=== PATIENT | male | born 1960 | race African-American/Black ===

== ENCOUNTER 2017-05-19 11:09 | Emergency (ER) | payer MEDICAID, SELFPAY ==
[2017-05-19 11:10] VITALS: BP 148/100; PULSE 98; RESP 16; TEMP 36.6; O2SAT 96; BMI 26.3
[2017-05-19] MEDS: HYDROcodone Bitartrate/Apap 5/325 Tablet PO (12:06)
[2017-05-19] MEDS: Naproxen 500 MG Tablet PO (12:07)
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
[2017-05-19 12:31] VITALS: BP 124/78; PULSE 87; RESP 16
== END 2017-05-19 12:32 | disposition home or self-care (01) ==
PROVIDERS: Emergency Provider Emergency Medicine
DX: T23.232A Burn of second degree of multiple left fingers (nail), not including thumb, initial encounter (principal); X19.XXXA Contact with other heat and hot substances, initial encounter; Y93.9 Activity, unspecified; Y92.009 Unspecified place in unspecified non-institutional (private) residence as the place of occurrence of the external cause; Y99.9 Unspecified external cause status; I10 Essential (primary) hypertension; E78.00 Pure hypercholesterolemia, unspecified; F17.200 Nicotine dependence, unspecified, uncomplicated
CPT/HCPCS: 99283

== ENCOUNTER 2017-05-26 09:04 | Emergency (ER) | payer MEDICAID, SELFPAY ==
[2017-05-26 09:04] VITALS: BP 134/87; PULSE 77; RESP 18; TEMP 36.6; O2SAT 98; BMI 26.6
--- NOTE | 2017-05-26 09:08 | ED.RN ---
PT STATES OUT OF VICODIN
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
--- NOTE | 2017-05-26 09:32 | ED.DEP ---
ED Disposition - Plan for ED Patient: Chief Complaint: Med Refill Instructions: ED Burn Thermal D 1st 2nd Dressing, Med Refill Prescriptions: Hydrocodone Bitart/Apap 5-325 [Granger 5/325] 1 - 2 tab PO Q4H PRN PRN 5 Days #20 tab PRN Reason: Pain [facility]errals: [facility]Tracey Ayala [Primary Care Provider] - Additional Instructions: See the wound center in 3 days
[2017-05-26] MEDS: HYDROcodone Bitartrate/Apap 5/325 Tablet PO (09:44)
== END 2017-05-26 10:14 | disposition home or self-care (01) ==
PROVIDERS: Emergency Provider Emergency Medicine
DX: T23.202D Burn of second degree of left hand, unspecified site, subsequent encounter (principal); X08.8XXD Exposure to other specified smoke, fire and flames, subsequent encounter; I10 Essential (primary) hypertension; E78.00 Pure hypercholesterolemia, unspecified; Z72.0 Tobacco use
CPT/HCPCS: 99283

== ENCOUNTER 2017-05-29 13:59 | Outpatient (RCR) | payer MEDICAID, SELFPAY ==
[2017-05-29 14:37] VITALS: BP 129/86; PULSE 70; RESP 18; TEMP 36.2; BMI 26.6
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
== END 2017-05-30 23:59 ==
LOC: WC 13:59
PROVIDERS: Visit Provider Family Medicine
DX: T23.232A Burn of second degree of multiple left fingers (nail), not including thumb, initial encounter (principal); X10.2XXA Contact with fats and cooking oils, initial encounter; Y93.G3 Activity, cooking and baking; Y92.9 Unspecified place or not applicable; E78.5 Hyperlipidemia, unspecified; I10 Essential (primary) hypertension; Z79.899 Other long term (current) drug therapy; F17.210 Nicotine dependence, cigarettes, uncomplicated
CPT/HCPCS: 16020; 87070; 87075; 87205; 99212; G0463

== ENCOUNTER 2017-06-10 10:00 | Outpatient (RCR) | payer MEDICAID, SELFPAY ==
--- NOTE | 2017-06-10 10:30 | HP.PTEVAL ---
Patient's Visit Information JAUN Reina NASCIMENTO is a 56 year old M referred to Physical Therapy by Nish Leong MD with a diagnosis of . Date of Evaluation: Physical Therapist: Emmett Evans PT, - Anticipated Interventions Thank you for the opportunity to evaluate your patient. For Medicare and Medicare HMO plans, please review the plan of care and approve it. It will need to be FAXED BACK to us at [phone] for Medicare purposes. Please let me know if there are questions or concerns regarding this plan of care. Physician Signature: Date:
--- NOTE | 2017-06-10 10:40 | HP.PTEVAL_ITS ---
Patient's Visit Information JAUN Reian NASCIMENTO is a 56 year old M referred to Physical Therapy by Nish Leong MD with a diagnosis of . Date of Evaluation: Physical Therapist: Emmett Evans PT, - Anticipated Interventions Thank you for the opportunity to evaluate your patient. For Medicare and Medicare HMO plans, please review the plan of care and approve it. It will need to be FAXED BACK to us at [phone] for Medicare purposes. Please let me know if there are questions or concerns regarding this plan of care. Physician Signature: Date:
== END 2017-06-10 12:38 | disposition home or self-care (01) ==
LOC: PT 10:00
PROVIDERS: Visit Provider Specialist
DX: S43.431D Superior glenoid labrum lesion of right shoulder, subsequent encounter (principal)

== ENCOUNTER 2017-06-12 09:30 | Outpatient (RCR) | payer MEDICAID, SELFPAY ==
[2017-05-31 01:24] VITALS: PULSE 70; RESP 18; TEMP 36.2
[2017-06-05 09:07] VITALS: BP 121/88; PULSE 70; RESP 18; TEMP 37
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
[2017-06-12 09:55] VITALS: BP 142/98; PULSE 61; RESP 16; TEMP 36.6
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
== END 2017-06-29 23:59 ==
LOC: WC 09:30
PROVIDERS: Visit Provider Family Medicine
DX: T23.232A Burn of second degree of multiple left fingers (nail), not including thumb, initial encounter (principal); X10.2XXA Contact with fats and cooking oils, initial encounter; Y93.G3 Activity, cooking and baking; I10 Essential (primary) hypertension; E78.5 Hyperlipidemia, unspecified; Z79.899 Other long term (current) drug therapy; F17.210 Nicotine dependence, cigarettes, uncomplicated
CPT/HCPCS: 11042; 99212; G0463

== ENCOUNTER 2017-07-02 14:00 | Outpatient (RCR) | payer MEDICAID, SELFPAY ==
--- NOTE | 2017-06-04 12:38 | HP.PTEVAL_ITS ---
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 Date of Evaluation: 06/04/17 Physical Therapist: Emmett Evans PT, - Visit Plan Frequency: 1x/Week Duration: 4 Weeks Plan: modalities,ROM ,strengthening RTC/SCAPULAR ,MANUAL THERAPY - Subjective Subjective: This 56 y/o male presents to physical therapy with superior glenoid labrum lesion right shoulder. Patient fell on steps injurird right shoulder last year about one year ago. Patient had MRI showed teasr and subscapularis tear. Patient has difficulty with self hygine ,ADL'S above 90 degrees.Patient pain affects sleeping. C/O parathesia/tingling in arm,. Patient plan affects quality of live and housework tasks. [facility]. VOCATION: unemployed. SOCAIL: single - Pain Right Shoulder Pain Intensity (Out of 10): 8 Pain Intensity Range: 10 - Objective POSTURE: mild foward posture. PALATION: tender right shoulder grossly. NEURO: inact. AROM: shoulder flexion 120 degrees ,110 abd pain ,ER 50 Degrees ,IR 40 degrees. CAPSULAR : mild /mod tight. SCAPULAR-HUMERAL FUNCTION: 1;1. MMT: RTC 4-/5 PAIN ,deltoid pain - Special Tests R Shoulder Supine Impingement Test - RC Tear: Positive R Shoulder Empty Can - SS: Positive R Shoulder Belly Press - SupScap: Positive R Shoulder Neer - Impingement: Positive R Shoulder Kang [place] - Impingement: Positive - Goals Goal 1:: Independant with HEP. Goal Time Frame: 2-4 Weeks Goal 2:: Decrease shoulder pain by 40 % or greater to improve function with ADL' S Goal Time Frame: 2-4 Weeks Goal 3:: Patient to increase ROM to improve function with ADL'S Goal Time Frame: 2-4 Weeks Goal 4:: Patient increase strength of shoulder to WFL by 1/2 grade to improve function Goal Time Frame: 2-4 Weeks Goal 5:: Patient be able to perform ADL'S and light funtion with min limiations Goal Time Frame: 2-4 Weeks - Rehabilitation Potential Physical Therapy Diagnosis: This 56 y/o male has shoulder labrum injury and RTC patient had MRI. Patient has current dificits with pain ,loss ROM ,decrease strength ,which impairs ADL'S and function Rehabilitation Potential: Good - Anticipated Interventions Patient/Client Instruction: Educate patient on: Condition, Plan of Care For the Purpose of:: To decrease pain, To increase ROM, To improve nutrient delivery to tissue, To increase oxygenation perfusion, To improve muscle performance and motor function, To improve ability to perform ADL's, To increase tolerance to activity/condition/position, To decrease level of supervision to perform tasks, To improve ability of physical actions for home/ community/work/leisure, To improve health of tissue, To decrease soft tissue restriction, To increase flexibility/ROM, To improve ability to perform tasks related to life management Therapeutic Exercise to Include: Strength training, Body mechanics, Postural training, Flexibilty training, Passive ROM, Active ROM Comment: RTC/SCAPULAR For the Purpose of:: To decrease pain, To increase ROM, To improve muscle performance and motor function, To improve ability to perform ADL's, To increase tolerance to activity/condition/position, To improve ability of physical actions for home/community/work/leisure, To improve gait and locomotor functions, To decrease soft tissue restriction, To increase flexibility/ROM, To improve ability to perform tasks related to life management Manual Therapy Techniques to Include: Mobilization Comment: G-H For the Purpose of:: To decrease pain, To increase ROM, To improve health of tissue, To decrease soft tissue restriction, To increase flexibility/ROM TENS: Yes IF ES: Yes Cryotherapy (ice pack, ice massage): Yes Thermo therapy (hot pack): Yes For the Purpose of:: To decrease pain, To increase ROM, To improve nutrient delivery to tissue, To increase oxygenation perfusion, To improve health of tissue, To decrease soft tissue restriction Thank you for the opportunity to evaluate your patient. For Medicare and Medicare HMO plans, please review the plan of care and approve it. It will need to be FAXED BACK to us at [phone] for Medicare purposes. Please let me know if there are questions or concerns regarding this plan of care. Physician Signature: Date:
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
--- NOTE | 2017-06-04 18:24 | HP.OTFCE.D ---
FCE D/C Summary - Discharge JAUN Reina NASCIMENTO was seen for a one time visit for an FCE on 06/04/17 and is discharged.
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
--- NOTE | 2017-10-05 10:21 | HP.PT.NRP ---
HP - Discharge Summary (1) - Patient Information JAUN Reina NASCIMENTO was seen in my office for initial evaluation on 06/04/17. The following Plan of Care was established for this patient: Initial Frequency: 1x/Week Initial Duration: 4 Weeks - Anticipated Interventions Patient/Client Instruction: Educate patient on: Condition, Plan of Care For the Purpose of:: To decrease pain, To increase ROM, To improve nutrient delivery to tissue, To increase oxygenation perfusion, To improve muscle performance and motor function, To improve ability to perform ADL's, To increase tolerance to activity/condition/position, To decrease level of supervision to perform tasks, To improve ability of physical actions for home/community/work/leisure, To improve health of tissue, To decrease soft tissue restriction, To increase flexibility/ROM, To improve ability to perform tasks related to life management Therapeutic Exercise to Include: Strength training, Body mechanics, Postural training, Flexibilty training, Passive ROM, Active ROM For the Purpose of:: To decrease pain, To increase ROM, To improve muscle performance and motor function, To improve ability to perform ADL's, To increase tolerance to activity/condition/position, To improve ability of physical actions for home/community/work/leisure, To improve gait and locomotor functions, To decrease soft tissue restriction, To increase flexibility/ROM, To improve ability to perform tasks related to life management Manual Therapy Techniques to Include: Mobilization Comment: G-H For the Purpose of:: To decrease pain, To increase ROM, To improve health of tissue, To decrease soft tissue restriction, To increase flexibility/ROM TENS: Yes IF ES: Yes Cryotherapy (ice pack, ice massage): Yes Thermo therapy (hot pack): Yes For the Purpose of:: To decrease pain, To increase ROM, To improve nutrient delivery to tissue, To increase oxygenation perfusion, To improve health of tissue, To decrease soft tissue restriction This patient was last seen in our office 07/02/17. Pertinent comments regarding their Physical therapy will appear below: This patient seen for shoulder labrium for 3 visits fovusing on modalties for pain control ,ROM strengthening,postural ex's . Patient moved to [place] thus is d/c. At this point I will be discontinuing this patient from physical therapy. I would be happy to see this patient again in the future if found appropriate by the physician. Thank you! Emmett Evans, PT,
== END 2017-07-02 19:00 | disposition home or self-care (01) ==
LOC: PT 14:00
PROVIDERS: Visit Provider Specialist
DX: S43.431D Superior glenoid labrum lesion of right shoulder, subsequent encounter (principal); R53.1 Weakness
CPT/HCPCS: 97014; 97035; 97110; 97162; 97750; G0283